=== PATIENT | male | born 1935 | race Hispanic/Latino ===

== ENCOUNTER 2020-12-31 10:53 | Outpatient (CLI) | payer MEDICARE ==
[2020-12-31 23:48] LABS: SARS-CoV-2 PCR by NAA Not Detected (NotDetected)
== END 2020-12-31 10:54 | disposition home or self-care (01) ==
LOC: CSHLAB 10:53
PROVIDERS: ATTEND Internal Medicine Gastroenterology
DX: Z01.812 Encounter for preprocedural laboratory examination (principal); Z20.822 Contact with and (suspected) exposure to COVID-19; K63.5 Polyp of colon; K62.5 Hemorrhage of anus and rectum; R10.13 Epigastric pain
CPT/HCPCS: U0003; U0005

== ENCOUNTER 2021-01-05 05:30 | Day surgery (SDC) | payer MEDICARE ==
[2021-01-02 15:15] VITALS: BMI 29.0
[2021-01-05] MEDS ORDERED: Lidocaine 1% MPF 2 ML VIAL ONE (06:41)
[2021-01-05] MEDS ORDERED: PROPOFOL 40 ML ONE (07:10)
[2021-01-05] MEDS ORDERED: Fentanyl 100 MCG/2 ML VIAL ONE (07:10)
== END 2021-01-05 08:52 | disposition home or self-care (01) ==
LOC: CSHSDC 05:30
PROVIDERS: ATTEND Internal Medicine Gastroenterology
PROC: 0DBP8ZZ Excision of Rectum, Via Natural or Artificial Opening Endoscopic (ICD-10-PCS; principal; 2021-01-05)
PROC: 0DB58ZZ Excision of Esophagus, Via Natural or Artificial Opening Endoscopic (ICD-10-PCS; 2021-01-05)
DX: C20 Malignant neoplasm of rectum (principal); K30 Functional dyspepsia; Z86.010 Personal history of colon polyps; K29.70 Gastritis, unspecified, without bleeding; R13.10 Dysphagia, unspecified
CPT/HCPCS: 88305; J2704; J3010

== ENCOUNTER 2021-08-26 10:15 | Outpatient (CLI) | payer MEDICARE | END 2021-08-26 10:16 | disposition home or self-care (01) | LOC: CSHCT 10:15 | PROVIDERS: ATTEND Internal Medicine Hematology & Oncology | DX: C20 Malignant neoplasm of rectum (principal); D50.0 Iron deficiency anemia secondary to blood loss (chronic) | CPT/HCPCS: 71260; 74177; 82565 ==

== ENCOUNTER 2021-10-08 12:08 | Observation (INO) | payer MEDICARE ==
[2021-10-08] MEDS ORDERED: Aspirin Chewable 81 MG TAB ONE (12:50)
[2021-10-08 13:06] LABS: #Monocytes 0.1 10x3/uL (0.0-1.1); #Neutrophils 5.2 10x3/uL (1.5-8.4); %Basophils 0.2 % (0.0-2.0); %Lymphocytes 12.6 % (18.0-47.0); %Monocytes 2.3 % (0.0-10.0); %Neutrophils 84.2 % (40.0-75.0); Hemoglobin 13.9 g/dL (13.5-17.5); Mean Corpuscular HGB CONC 34.9 g/dL (32.0-36.0); Mean Corpuscular Volume 91.7 fl (81.2-95.1); Mean Platelet Volume 9.1 fl (7.4-10.4); Platelet Count 245 10x3/uL (150-450); RBC Distribution Width 13.4 % (11.5-14.5); Red Blood Cell (RBC) Count 4.34 10x6/uL (4.32-5.72); White Blood Cell (WBC) Count 6.1 10x3/uL (3.5-10.5)
[2021-10-08 13:12] LABS: ALT (SGPT) 19 U/L (8-55); AST (SGOT) 18 U/L (5-34); Albumin 4.5 g/dL (3.4-4.8); Alkaline Phosphatase 62 U/L (40-110); Anion Gap 15 mmol/L (10-20); BUN (Urea Nitrogen) 22 mg/dL (8.4-25.7); Bilirubin, Total 0.7 mg/dL (0.2-1.2); Calc. Creatinine Clearance 0 mL/min (70-130); Carbon Dioxide 26 mmol/L (23-31); Chloride 104 mmol/L (98-107); Estimated GFR 64; Globulin 3.3 g/dL (2.4-3.5); Glucose 199 mg/dL (83-110); Potassium 3.6 mmol/L (3.5-5.1); Protein, Total 7.8 g/dL (5.8-8.1); Sodium 141 mmol/L (136-145)
[2021-10-08] MEDS ORDERED: Acetaminophen 325 MG TAB PO PRN (14:36)
[2021-10-08 14:46] LABS: SARS-CoV-2 NAA Rapid Test Not Detected (NotDetected)
[2021-10-08 17:29] VITALS: BMI 25.8
[2021-10-08 20:04] LABS: Hemoglobin A1c 5.3 % (4.0-6.0)
[2021-10-08] MEDS: Amlodipine 10 MG TAB PO SCH (20:39)
[2021-10-08] MEDS: Losartan Potassium 50 MG TAB PO SCH ×2 (20:39→21:23)
[2021-10-08] MEDS ORDERED: Atorvastatin Calcium 20 MG TAB PO SCH (21:00)
[2021-10-09 06:20] LABS: Cardiac Risk 2.7 (Less than 4.5)
[2021-10-09 08:57] LABS: #Monocytes 0.4 10x3/uL (0.0-1.1); %Basophils 0.4 % (0.0-2.0); %Eosinophils 0.7 % (0.0-6.0); %Lymphocytes 22.2 % (18.0-47.0); %Monocytes 9.9 % (0.0-10.0); %Neutrophils 66.4 % (40.0-75.0); Hemoglobin 12.8 g/dL (13.5-17.5); Mean Corpuscular HGB CONC 35.3 g/dL (32.0-36.0); Mean Corpuscular Hemoglobin 32.2 pg (27.0-33.0); Mean Corpuscular Volume 91.4 fl (81.2-95.1); Mean Platelet Volume 9.3 fl (7.4-10.4); Platelet Count 219 10x3/uL (150-450); RBC Distribution Width 13.2 % (11.5-14.5); Red Blood Cell (RBC) Count 3.97 10x6/uL (4.32-5.72); White Blood Cell (WBC) Count 4.5 10x3/uL (3.5-10.5)
[2021-10-09 08:59] LABS: Anion Gap 12 mmol/L (10-20); BUN (Urea Nitrogen) 18 mg/dL (8.4-25.7); Calc. Creatinine Clearance 69 mL/min (70-130); Calcium 9.1 mg/dL (7.8-10.44); Carbon Dioxide 28 mmol/L (23-31); Chloride 106 mmol/L (98-107); Estimated GFR 86; Glucose 91 mg/dL (83-110); Potassium 3.2 mmol/L (3.5-5.1); Sodium 143 mmol/L (136-145)
[2021-10-09] MEDS ORDERED: Aspirin 325 mg Enteric Coated Tablet PO SCH (09:00)
[2021-10-09] MEDS: Amlodipine 10 MG TAB PO SCH (10:19)
[2021-10-09 13:51] LABS: Bilirubin Neg (Negative); Blood, Urine 25 (Negative); Clarity Clear (Clear); Glucose, Urine (Dipstick) Normal (Negative); Ketone, Urine 150 mg/dL (Negative); Leukocyte 500 (Negative); Nitrite Negative (Negative); Protein, Urine (Dipstick) 30 mg/dl (Neg-Trace); Urobilinogen Normal mg/dL (Less than 2)
[2021-10-09 13:52] LABS: Urine Culture Reflex No No
[2021-10-09 13:59] LABS: Bacteria/HPF Rare-Few HPF (None Seen); Squamous Epithelial 0-3 HPF (0-3)
[2021-10-09] MEDS ORDERED: cefTRIAXone\\ROCEPHIN 1 GM in Sodium Chloride 0.9% 100 ML IVPB SCH (15:00)
[2021-10-09 21:46] VITALS: BP 142/69; TEMP 97.4
== END 2021-10-09 18:45 | disposition home or self-care (01) ==
LOC: CSHERS 12:08 → CSHERHOLD 15:39 → INTOOBSV 15:39 → CSHTELE 16:36
PROVIDERS: ADMIT Family Medicine; ATTEND Internal Medicine
DX: R41.82 Altered mental status, unspecified (principal); G45.9 Transient cerebral ischemic attack, unspecified; D32.9 Benign neoplasm of meninges, unspecified; E78.5 Hyperlipidemia, unspecified; I25.10 Atherosclerotic heart disease of native coronary artery without angina pectoris; I10 Essential (primary) hypertension; G93.41 Metabolic encephalopathy; N39.0 Urinary tract infection, site not specified; E87.6 Hypokalemia; K21.9 Gastro-esophageal reflux disease without esophagitis; Z79.82 Long term (current) use of aspirin; Z79.899 Other long term (current) drug therapy; Z90.49 Acquired absence of other specified parts of digestive tract
CPT/HCPCS: 0241U; 70450; 70496; 70498; 70551; 80048; 80061; 81001; 82962; 83036; 84484; 85025; 87086; 93005; 93306; 94760 ×2; 97530; 97535; 99285; 36415; 36416; 80053; 84443; G0378

== ENCOUNTER 2022-02-09 07:36 | Outpatient (CLI) | payer MEDICARE | END 2022-02-09 07:37 | disposition home or self-care (01) | LOC: EDBD → CSHCT 07:36 → EDBD 08:00 | PROVIDERS: ATTEND Internal Medicine Hematology & Oncology | DX: C20 Malignant neoplasm of rectum (principal); R91.8 Other nonspecific abnormal finding of lung field; J90 Pleural effusion, not elsewhere classified; Z93.3 Colostomy status | CPT/HCPCS: 71260; 74177; 82565 ==

== ENCOUNTER 2022-04-13 09:31 | Outpatient (CLI) | payer MEDICARE | END 2022-04-13 09:32 | disposition home or self-care (01) | LOC: CSHCT 09:31 | PROVIDERS: ATTEND Internal Medicine Hematology & Oncology | DX: J90 Pleural effusion, not elsewhere classified (principal); R91.8 Other nonspecific abnormal finding of lung field; C20 Malignant neoplasm of rectum; R93.7 Abnormal findings on diagnostic imaging of other parts of musculoskeletal system | CPT/HCPCS: 71250 ==

== ENCOUNTER 2023-01-24 09:13 | Outpatient (CLI) | payer MEDICARE | END 2023-01-24 09:14 | disposition home or self-care (01) | LOC: CSHCT 09:13 | PROVIDERS: ATTEND Internal Medicine Hematology & Oncology | DX: C20 Malignant neoplasm of rectum (principal) | CPT/HCPCS: 71260; 74177; 82565 ==

== ENCOUNTER 2023-05-20 09:22 | Outpatient (CLI) | payer MEDICARE | END 2023-05-20 09:23 | disposition home or self-care (01) | LOC: CSHCT 09:22 | PROVIDERS: ATTEND Nurse Practitioner Adult Health | DX: Z95.1 Presence of aortocoronary bypass graft (principal); I71.43 Infrarenal abdominal aortic aneurysm, without rupture; K55.069 Acute infarction of intestine, part and extent unspecified | CPT/HCPCS: 74175; 82565 ==

== ENCOUNTER 2023-09-14 08:03 | Outpatient (CLI) | payer MEDICARE ==
[2023-09-14] MEDS ORDERED: Iopamidol 300 61% 100 ML VIAL FS ONE (08:40)
== END 2023-09-14 08:04 | disposition home or self-care (01) ==
LOC: CSHCT 08:03
PROVIDERS: ATTEND Internal Medicine Hematology & Oncology
DX: C20 Malignant neoplasm of rectum (principal); Z98.890 Other specified postprocedural states; Z93.3 Colostomy status; I71.40 Abdominal aortic aneurysm, without rupture, unspecified
CPT/HCPCS: 71260; 74177; 82565

== ENCOUNTER 2024-03-05 12:23 | Outpatient (CLI) | payer MEDICARE | END 2024-03-05 12:24 | disposition home or self-care (01) | LOC: CSHCT 12:23 | PROVIDERS: ATTEND Internal Medicine Hematology & Oncology | DX: C20 Malignant neoplasm of rectum (principal); D50.0 Iron deficiency anemia secondary to blood loss (chronic); N28.1 Cyst of kidney, acquired; K76.89 Other specified diseases of liver; I71.40 Abdominal aortic aneurysm, without rupture, unspecified; N40.0 Benign prostatic hyperplasia without lower urinary tract symptoms; M48.00 Spinal stenosis, site unspecified | CPT/HCPCS: 71260; 74177; 82565 ==